=== PATIENT | female | born 1995 | race Asian ===

== ENCOUNTER 2023-09-05 19:42 | Emergency (ER) | payer OTHER ==
[~2023-09-05] VITALS: Ht 160 cm; Wt 56.8 kg
[~2023-09-05 19:42] MED LIST: CIPR250T6 PO; MIRT-89 PO
[2023-09-05] MEDS ORDERED: HYDR-4584 PO (19:53)
[2023-09-05] MEDS ORDERED: BUPR-49 PO (19:53)
[2023-09-05] MEDS ORDERED: CHOL500013 PO (19:53)
[2023-09-05] MEDS ORDERED: LIDOCAINE 1% 10 ML VIAL SQ ONE (22:15)
[2023-09-05 23:15] VITALS: BP 129/67; PULSE 75; RESP 16; TEMP 98.3
== END 2023-09-06 00:03 | disposition home or self-care (01) ==
LOC: EMS 19:43
DX: S61.011A Laceration without foreign body of right thumb without damage to nail, initial encounter (principal); F41.9 Anxiety disorder, unspecified; F32.A Depression, unspecified; Z88.2 Allergy status to sulfonamides; W26.0XXA Contact with knife, initial encounter; Y93.89 Activity, other specified; Y92.89 Other specified places as the place of occurrence of the external cause; Y99.8 Other external cause status
CPT/HCPCS: 99282; 12002; J3490